=== PATIENT | female | born 1965 | race African-American/Black ===

== ENCOUNTER 2019-01-16 08:16 | Emergency (ER) | payer BC, MEDICAID ==
[~2019-01-16] VITALS: Ht 167.6 cm; Wt 110.0 kg
[2019-01-16] MEDS ORDERED: TRAMADOL 50MG TABLET PO ONE (08:45)
[2019-01-16] MEDS ORDERED: NITROFURANTOIN 100MG M/M CAPSULE PO ONE (10:15)
[2019-01-16 11:14] LABS: CLARITY URINE CLOUDY (CLEAR); COLOR URINE YELLOW (YELLOW); KETONES URINE NEGATIVE (NEGATIVE); LEUKOCYTE ESTERASE URINE 3+ (NEGATIVE); NITRITE URINE NEGATIVE (NEGATIVE); OCCULT BLOOD URINE 3+ (NEGATIVE); PH URINE 7.5 (4.5-8.0); PROTEIN URINE TRACE (NEGATIVE)
[2019-01-16 14:33] VITALS: BP 137/84
== END 2019-01-16 14:45 | disposition home or self-care (01) ==
LOC: ER 08:16
DX: N39.0 Urinary tract infection, site not specified (principal); R33.9 Retention of urine, unspecified; G82.20 Paraplegia, unspecified; Z85.72 Personal history of non-Hodgkin lymphomas
CPT/HCPCS: 51702; 81003; 87077; 87186; 99284

== ENCOUNTER 2019-10-28 17:44 | Inpatient (IN) | payer BC, MEDICAID ==
[~2019-10-28] VITALS: Ht 157.5 cm; Wt 77.1 kg
[2019-10-28 01:45] VITALS: BP 108/58
[2019-10-28] MEDS ORDERED: SODIUM CHLORIDE 0.9% 1,000 ML IV ONE (18:14)
[2019-10-28] MEDS ORDERED: MAGNESIUM/ALUMINUM HYDROXIDE/SIMETHICONE 30ML UDC PO STA (18:38)
[2019-10-28 18:54] LABS: CLARITY URINE CLOUDY (CLEAR); COLOR URINE YELLOW (YELLOW); KETONES URINE TRACE (NEGATIVE); LEUKOCYTE ESTERASE URINE 3+ (NEGATIVE); NITRITE URINE NEGATIVE (NEGATIVE); OCCULT BLOOD URINE TRACE (NEGATIVE); PH URINE 7.5 (4.5-8.0); PROTEIN URINE TRACE (NEGATIVE); SPECIFIC GRAVITY URINE 1.016 (1.005-1.030)
[2019-10-28 18:57] LABS: HEMATOCRIT. 37.3 % (36.0-48.0); HEMOGLOBIN. 12.2 g/dL (12.0-16.0); MEAN CORPUSCULAR HEMOGLOBIN 28.8 pg (28.0-32.0); MEAN CORPUSCULAR VOLUME 88.1 fL (81.0-99.0); PLATELET 396 x1000/uL (130-400); RED BLOOD CELL COUNT 4.23 mill/uL (4.2-5.4); RED CELL DISTRIBUTION WIDTH 16.9 % (11.6-14.6)
[2019-10-28 18:59] LABS: CHLORIDE 100 mEq/L (98-107)
[2019-10-28 19:04] LABS: C REACTIVE PROTEIN QUANT 5.6 mg/L (0.0-3.0)
[2019-10-28 19:08] LABS: INR 1.2; PROTHROMBIN TIME 12.3 sec (9.6-11.0)
[2019-10-28 19:37] LABS: PLATELET ESTIMATE NORMAL
[2019-10-28] MEDS ORDERED: POTASSIUM CHLORIDE 20MEQ TABLET SR PO ONE ×2 (19:45→20:30)
[2019-10-28] MEDS ORDERED: KCL 10MEQ/50ML PREMIX 100 ML IV SCH (19:45)
[2019-10-28] MEDS ORDERED: ACETAMINOPHEN 325MG TABLET PO ONE (22:30)
[2019-10-29 01:56] VITALS: BP 101/58
[2019-10-29] MEDS ORDERED: CEPH250T PO (02:23)
[2019-10-29] MEDS ORDERED: IBUP-2029 PO (02:23)
[2019-10-29] MEDS ORDERED: ALLO300T2 PO (02:23)
[2019-10-29] MEDS ORDERED: HYDR25TA PO (02:23)
[2019-10-29] MEDS ORDERED: HYDR-3281 PO (02:23)
[2019-10-29] MEDS ORDERED: TRAM300C3 PO (02:23)
[2019-10-29] MEDS ORDERED: CEFTRIAXONE 1 G PREMIX 50 ML IV SCH (03:00)
[2019-10-29] MEDS ORDERED: METRONIDAZOLE 500MG TABLET PO ONE (03:00)
[2019-10-29] MEDS ORDERED: MAGNESIUM CITRATE 300ML SOLUTION PO ONE (03:00)
[2019-10-29] MEDS ORDERED: DOCUSATE SODIUM 100MG CAPSULE PO ONE (03:00)
[2019-10-29] MEDS ORDERED: CEFTRIAXONE 1,000 MG in DEXTROSE 5% WATER 50 ML IV SCH (06:00)
[2019-10-29 08:01] VITALS: BP 148/68
[2019-10-29] MEDS: ALLOPURINOL 300 MG TABLET PO SCH (09:00)
[2019-10-29] MEDS: HYDROCODONE/ACETAMINOPHEN 5/325MG TABLET PO PRN ×3 (09:12→23:14)
[2019-10-29 11:59] VITALS: BP 100/62
[2019-10-29 12:01] LABS: HEMATOCRIT. 35.3 % (36.0-48.0); HEMOGLOBIN. 11.3 g/dL (12.0-16.0); MEAN CORPUSCULAR HEMOGLOBIN 28.8 pg (28.0-32.0); MEAN CORPUSCULAR VOLUME 90.3 fL (81.0-99.0); MEAN PLATELET VOLUME 8.4 fl (7.4-10.4); PLATELET 337 x1000/uL (130-400); RED BLOOD CELL COUNT 3.91 mill/uL (4.2-5.4); RED CELL DISTRIBUTION WIDTH 16.4 % (11.6-14.6)
[2019-10-29 12:35] LABS: CHLORIDE 107 mEq/L (98-107)
[2019-10-29 12:54] LABS: PLATELET ESTIMATE NORMAL
[2019-10-29] MEDS ORDERED: CLONIDINE 0.1MG TABLET PO PRN (15:00)
[2019-10-29] MEDS ORDERED: MAGNESIUM/ALUMINUM HYDROXIDE/SIMETHICONE 30ML UDC PO PRN (15:00)
[2019-10-29] MEDS ORDERED: ONDANSETRON HCL 4MG/2ML INJ IV PRN (15:00)
[2019-10-29] MEDS ORDERED: ACETAMINOPHEN 650MG/20.3ML UDC GT PRN (15:00)
[2019-10-29 16:00] VITALS: BP 105/67
[2019-10-29] MEDS ORDERED: BISACODYL 10MG SUPP PR NR (16:00)
[2019-10-29] MEDS: ENOXAPARIN 40MG/0.4ML SYR SUBCUT SCH (16:00)
[2019-10-29] MEDS ORDERED: MAGNESIUM CITRATE 300ML SOLUTION PO NR (17:00)
[2019-10-29] MEDS: PIPERACILLIN/TAZOBACTAM 3.375 G in DEXT 5% WATER 100 ML IV SCH ×2 (19:04→23:18)
[2019-10-29 20:00] VITALS: BP 99/61
[2019-10-29] MEDS ORDERED: PIPERACILLIN/TAZOBACTAM 3.375 G/VIAL IV SCH (22:00)
[2019-10-30 04:00] VITALS: BP 101/53
[2019-10-30] MEDS: HYDROCODONE/ACETAMINOPHEN 5/325MG TABLET PO PRN ×3 (04:30→20:51)
[2019-10-30] MEDS: PIPERACILLIN/TAZOBACTAM 3.375 G in DEXT 5% WATER 100 ML IV SCH ×2 (04:30→12:30)
[2019-10-30] MEDS: OMEPRAZOLE 20MG CAPSULE EXTENDED RELEASE PO SCH (05:37)
[2019-10-30 07:14] LABS: HEMATOCRIT. 33.7 % (36.0-48.0); MEAN CORPUSCULAR VOLUME 89.1 fL (81.0-99.0); MEAN PLATELET VOLUME 7.7 fl (7.4-10.4); PLATELET 334 x1000/uL (130-400); RED BLOOD CELL COUNT 3.79 mill/uL (4.2-5.4); RED CELL DISTRIBUTION WIDTH 16.6 % (11.6-14.6)
[2019-10-30 07:42] LABS: CHLORIDE 104 mEq/L (98-107)
[2019-10-30 08:00] VITALS: BP 100/59
[2019-10-30] MEDS ORDERED: DOCUSATE SODIUM 250MG CAPSULE PO SCH (09:00)
[2019-10-30] MEDS: ALLOPURINOL 300 MG TABLET PO SCH (09:01)
[2019-10-30 10:51] LABS: PLATELET ESTIMATE NORMAL
[2019-10-30 12:00] VITALS: BP 103/62
[2019-10-30 16:00] VITALS: BP 107/71
[2019-10-30] MEDS: ENOXAPARIN 40MG/0.4ML SYR SUBCUT SCH (16:00)
[2019-10-30 20:00] VITALS: BP 99/68
[2019-10-31] VITALS: BP 103/95
[2019-10-31] MEDS: PIPERACILLIN/TAZOBACTAM 3.375 G in DEXT 5% WATER 100 ML IV SCH ×5 (00:17→23:52)
[2019-10-31 04:00] VITALS: BP 105/60
[2019-10-31] MEDS: HYDROCODONE/ACETAMINOPHEN 5/325MG TABLET PO PRN ×3 (06:46→22:31)
[2019-10-31] MEDS: OMEPRAZOLE 20MG CAPSULE EXTENDED RELEASE PO SCH (06:47)
[2019-10-31 07:05] LABS: HEMATOCRIT. 36.2 % (36.0-48.0); MEAN CORPUSCULAR HEMOGLOBIN 29.4 pg (28.0-32.0); MEAN CORPUSCULAR VOLUME 88.6 fL (81.0-99.0); MEAN PLATELET VOLUME 7.3 fl (7.4-10.4); PLATELET 318 x1000/uL (130-400); RED BLOOD CELL COUNT 4.08 mill/uL (4.2-5.4); RED CELL DISTRIBUTION WIDTH 16.8 % (11.6-14.6)
[2019-10-31 07:26] LABS: CHLORIDE 106 mEq/L (98-107)
[2019-10-31 08:00] VITALS: BP 101/60
[2019-10-31] MEDS ORDERED: MAGNESIUM HYDROXIDE 400MG/5ML 30ML UDC PO PRN (08:45)
[2019-10-31] MEDS: DOCUSATE SODIUM 250MG CAPSULE PO SCH ×2 (09:05→16:44)
[2019-10-31] MEDS: ALLOPURINOL 300 MG TABLET PO SCH (09:05)
[2019-10-31 12:00] VITALS: BP 107/67
[2019-10-31] MEDS ORDERED: BISACODYL 10MG SUPP PR SCH (13:30)
[2019-10-31 16:00] VITALS: BP 101/67
[2019-10-31] MEDS: ENOXAPARIN 40MG/0.4ML SYR SUBCUT SCH (16:00)
[2019-10-31] MEDS ORDERED: LEVO750T21 MT (16:19)
[2019-10-31 17:42] VITALS: BP 101/67
[2019-10-31 21:17] LABS: PLATELET ESTIMATE NORMAL
[2019-11-01 04:00] VITALS: BP 106/69
[2019-11-01] MEDS: PIPERACILLIN/TAZOBACTAM 3.375 G in DEXT 5% WATER 100 ML IV SCH ×2 (06:30→08:15)
[2019-11-01] MEDS: OMEPRAZOLE 20MG CAPSULE EXTENDED RELEASE PO SCH (07:03)
[2019-11-01 08:00] VITALS: BP 117/81
[2019-11-01] MEDS: DOCUSATE SODIUM 250MG CAPSULE PO SCH (08:24)
[2019-11-01] MEDS: ALLOPURINOL 300 MG TABLET PO SCH (08:24)
[2019-11-01] MEDS ORDERED: LIDOCAINE HCL 1% 20ML VIAL (Pyxis) INJ ONE (09:32)
[2019-11-01 09:58] VITALS: BP 117/81
[2019-11-01] MEDS: HYDROCODONE/ACETAMINOPHEN 5/325MG TABLET PO PRN (09:58)
[2019-11-02 09:07] LABS: SACCHAROMYCES CEREVISIAE IGG <20.0 Units (0.0-24.9); SACCHAROMYCES CEREVISIAE IGM <20.0 Units (0.0-24.9)
[2019-11-02 13:06] LABS: ATYPICAL pANCA <1:20 titer (Neg:<1:20)
== END 2019-11-01 10:55 | disposition home or self-care (01) | DRG 720 ==
LOC: ER 17:44 → 6EST 22:15 → EDBEDREQTM 22:21 → EDBEDREQ 22:21 → EDBEDREQSVC 22:21 → ENRESERV 23:05
PROVIDERS: ADMIT Internal Medicine; ATTEND Internal Medicine
PROC: 0T2BX0Z Change Drainage Device in Bladder, External Approach (ICD-10-PCS; principal; 2019-10-30)
DX: A41.9 Sepsis, unspecified organism (principal); C85.90 Non-Hodgkin lymphoma, unspecified, unspecified site; N39.0 Urinary tract infection, site not specified; D72.825 Bandemia; E66.01 Morbid (severe) obesity due to excess calories; E73.9 Lactose intolerance, unspecified; E87.6 Hypokalemia; G82.20 Paraplegia, unspecified; K56.41 Fecal impaction; R74.8 Abnormal levels of other serum enzymes; Z87.440 Personal history of urinary (tract) infections; Z87.891 Personal history of nicotine dependence; Z68.31 Body mass index [BMI] 31.0-31.9, adult; Z92.3 Personal history of irradiation; Z79.899 Other long term (current) drug therapy; B96.5 Pseudomonas (aeruginosa) (mallei) (pseudomallei) as the cause of diseases classified elsewhere; K52.9 Noninfective gastroenteritis and colitis, unspecified; R32 Unspecified urinary incontinence; I95.9 Hypotension, unspecified
CPT/HCPCS: 36415; 71045; 74018; 74176; 80048; 80053; 80076; 81003; 83605; 84145; 84484; 85025; 86140; 86256; 86671; 87077; 87186; 93005; 93970; 97162; 97166; 99285; J0696; J1650; J2543; J3480; J3490; J7030; J7060

== ENCOUNTER 2019-12-11 10:16 | Inpatient (IN) | payer MEDICAID ==
[~2019-12-11] VITALS: Ht 157.5 cm; Wt 78.9 kg
[~2019-12-11 10:16] MED LIST: ALLO300T2 PO; HYDR-3281 PO; HYDR25TA PO; IBUP-2029 PO; LEVO750T21 MT; TRAM300C3 PO
[2019-12-11 11:34] LABS: HEMATOCRIT. 31.4 % (36.0-48.0); HEMOGLOBIN. 10.6 g/dL (12.0-16.0); MEAN CORPUSCULAR HEMOGLOBIN 30.7 pg (28.0-32.0); MEAN CORPUSCULAR VOLUME 90.4 fL (81.0-99.0); MEAN PLATELET VOLUME 7.7 fl (7.4-10.4); PLATELET 552 x1000/uL (130-400); RED BLOOD CELL COUNT 3.47 mill/uL (4.2-5.4); RED CELL DISTRIBUTION WIDTH 15.7 % (11.6-14.6)
[2019-12-11 11:41] LABS: CHLORIDE 97 mEq/L (98-107)
[2019-12-11 11:52] LABS: D-DIMER 7.51 mg/L FEU (<0.50); INR 1.2; PROTHROMBIN TIME 12.4 sec (9.6-11.0)
[2019-12-11] MEDS ORDERED: POTASSIUM CHLORIDE 20MEQ TABLET SR PO ONE (12:00)
[2019-12-11 12:28] LABS: PLATELET ESTIMATE INCREASED
[2019-12-11] MEDS ORDERED: ONDANSETRON HCL 4MG/2ML INJ IV STA (12:41)
[2019-12-11] MEDS ORDERED: MORPHINE SULFATE 4 MG/ML CPJ (NOT FOR IM USE) IV STA (12:41)
[2019-12-11] MEDS ORDERED: MORPHINE SULFATE 4 MG/ML CPJ (NOT FOR IM USE) IV ONE (12:45)
[2019-12-11] MEDS ORDERED: IOHEXOL-350 100 ML BOTTLE ONE (14:37)
[2019-12-11] MEDS ORDERED: SODIUM CHLORIDE 0.9% 1,000 ML IV ONE ×2 (16:00→17:15)
[2019-12-11 16:27] LABS: CLARITY URINE CLEAR (CLEAR); COLOR URINE YELLOW (YELLOW); KETONES URINE 3+ (NEGATIVE); LEUKOCYTE ESTERASE URINE TRACE (NEGATIVE); NITRITE URINE POSITIVE (NEGATIVE); OCCULT BLOOD URINE 2+ (NEGATIVE); PH URINE 5.5 (4.5-8.0); PROTEIN URINE 1+ (NEGATIVE); SPECIFIC GRAVITY URINE 1.043 (1.005-1.030)
[2019-12-11] MEDS ORDERED: CEFTRIAXONE 1 G PREMIX 50 ML IV ONE (16:45)
[2019-12-11 21:36] VITALS: BP 116/84
[2019-12-11 22:00] VITALS: BP 122/73
[2019-12-11] MEDS ORDERED: MORPHINE SULFATE 2 MG/ML CPJ (NOT FOR IM USE) IV PRN (22:30)
[2019-12-11] MEDS: HYDROCODONE/ACETAMINOPHEN 5/325MG TABLET PO PRN (23:02)
[2019-12-12] VITALS (11 sets, daily range): BP systolic 91–146; BP diastolic 54–94
[2019-12-12] MEDS ORDERED: SODIUM CHL 0.9% + KCL 20MEQ/L 1,000 ML IV SCH
[2019-12-12] MEDS: PIPERACILLIN/TAZOBACTAM 3.375 G in DEXT 5% WATER 100 ML IV SCH ×4 (00:13→19:14)
[2019-12-12] MEDS ORDERED: VANCOMYCIN 1 G PREMIX 200 ML IV SCH ×2 (01:00→21:00)
[2019-12-12 06:32] LABS: HEMATOCRIT. 31.3 % (36.0-48.0); HEMOGLOBIN. 10.1 g/dL (12.0-16.0); MEAN CORPUSCULAR HEMOGLOBIN 29.4 pg (28.0-32.0); MEAN CORPUSCULAR VOLUME 91.1 fL (81.0-99.0); MEAN PLATELET VOLUME 7.9 fl (7.4-10.4); PLATELET 401 x1000/uL (130-400); RED BLOOD CELL COUNT 3.43 mill/uL (4.2-5.4); RED CELL DISTRIBUTION WIDTH 15.7 % (11.6-14.6)
[2019-12-12 06:45] LABS: CHLORIDE 103 mEq/L (98-107)
[2019-12-12] MEDS: ENOXAPARIN 40MG/0.4ML SYR SUBCUT SCH ×2 (08:04→08:08)
[2019-12-12] MEDS: HYDROCODONE/ACETAMINOPHEN 5/325MG TABLET PO PRN ×2 (08:05→14:05)
[2019-12-12] MEDS: SODIUM CHLORIDE 0.9% 1,000 ML IV SCH ×2 (09:13→21:00)
[2019-12-12 09:19] LABS: LDL CHOLESTEROL 119 mg/dL (5-100)
[2019-12-12 09:20] LABS: HDL CHOLESTEROL 42 mg/dL (40-59)
[2019-12-12] MEDS ORDERED: VANCOMYCIN 750 MG PREMIX 150 ML IV SCH (11:00)
[2019-12-12] MEDS: ASPIRIN 81MG TABLET PO SCH (11:52)
[2019-12-12 14:38] LABS: PLATELET ESTIMATE NORMAL
[2019-12-12] MEDS ORDERED: GADOBENATE DIMEGLUMINE 529 MG/ML 10ML IV ONE (18:01)
[2019-12-12] MEDS: ACETAMINOPHEN 325MG TABLET PO PRN (20:01)
[2019-12-12] MEDS: VANCOMYCIN 1 G PREMIX 200 ML IV SCH (23:20)
[2019-12-13] VITALS (11 sets, daily range): BP systolic 95–141; BP diastolic 54–85
[2019-12-13] MEDS: PIPERACILLIN/TAZOBACTAM 3.375 G in DEXT 5% WATER 100 ML IV SCH ×4 (01:18→17:21)
[2019-12-13] MEDS: HYDROCODONE/ACETAMINOPHEN 5/325MG TABLET PO PRN ×3 (01:22→14:09)
[2019-12-13 06:07] LABS: HEMATOCRIT. 28.7 % (36.0-48.0); HEMOGLOBIN. 9.5 g/dL (12.0-16.0); MEAN CORPUSCULAR HEMOGLOBIN 30.2 pg (28.0-32.0); MEAN CORPUSCULAR VOLUME 90.9 fL (81.0-99.0); MEAN PLATELET VOLUME 7.8 fl (7.4-10.4); PLATELET 426 x1000/uL (130-400); RED BLOOD CELL COUNT 3.15 mill/uL (4.2-5.4); RED CELL DISTRIBUTION WIDTH 15.7 % (11.6-14.6)
[2019-12-13 06:35] LABS: CHLORIDE 105 mEq/L (98-107)
[2019-12-13] MEDS: ASPIRIN 81MG TABLET PO SCH (08:12)
[2019-12-13] MEDS: ACETAMINOPHEN 325MG TABLET PO PRN (08:12)
[2019-12-13] MEDS: VANCOMYCIN 1 G PREMIX 200 ML IV SCH (08:14)
[2019-12-13] MEDS: ENOXAPARIN 40MG/0.4ML SYR SUBCUT SCH (08:14)
[2019-12-13 08:47] LABS: PLATELET ESTIMATE SLIGHTLY INCREASED
[2019-12-13] MEDS: BACLOFEN 10MG TABLET PO SCH ×2 (10:09→17:21)
[2019-12-13] MEDS ORDERED: SODIUM CHLORIDE 0.9% 1,000 ML IV SCH (10:15)
[2019-12-13] MEDS ORDERED: VANCOMYCIN 1250MG in DEXTROSE 5% WATER 250ML IV SCH (21:00)
== END 2019-12-13 22:58 | disposition short-term general hospital (02) | DRG 720 ==
LOC: ER 10:53 → 3WST 17:48 → EDBEDREQ 17:56 → ENRESERV 20:03 → 3WST 20:52
PROVIDERS: ADMIT Internal Medicine; ATTEND Internal Medicine
DX: A41.02 Sepsis due to Methicillin resistant Staphylococcus aureus (principal); N39.0 Urinary tract infection, site not specified; E87.8 Other disorders of electrolyte and fluid balance, not elsewhere classified; C85.90 Non-Hodgkin lymphoma, unspecified, unspecified site; E44.0 Moderate protein-calorie malnutrition; D64.9 Anemia, unspecified; L89.156 Pressure-induced deep tissue damage of sacral region; R07.89 Other chest pain; E78.5 Hyperlipidemia, unspecified; E87.6 Hypokalemia; G82.20 Paraplegia, unspecified; Z92.21 Personal history of antineoplastic chemotherapy; Z88.2 Allergy status to sulfonamides; Z79.2 Long term (current) use of antibiotics; Z79.899 Other long term (current) drug therapy; Z68.31 Body mass index [BMI] 31.0-31.9, adult
CPT/HCPCS: 36415; 71045; 71275; 72148; 72157; 73560; 74177; 80048; 80053; 80061; 80202; 81003; 82040; 83735; 83880; 84134; 84443; 84484; 85025; 85379; 87077; 93005; 93306; 93970; 97162; 97530; 99285; A9577; J0696; J1650; J2270; J2405; J2543; J3370; J3480; J7030; J7060; Q9967